=== PATIENT | female | born 1985 | race Caucasian/White ===

== ENCOUNTER 2017-01-29 22:15 | Emergency (ER) | payer OTHER ==
[2017-01-29 23:37] LABS: BASOPHIL 0.2 % (0-2); BILIRUBIN NEGATIVE (NEGATIVE); BLOOD 1+ Ery/uL (NEGATIVE); CLARITY CLEAR (CLEAR); COLOR YELLOW (YELLOW); EOSINOPHIL 2.2 % (0-5); GLUCOSE (U) NORMAL (NORMAL); HCT 43.2 % (37.0-47.0); HGB 14.8 g/dl (12.5-16.0); KETONE (U) NEGATIVE (NEGATIVE); LEUKOCYTES NEGATIVE Leu/uL (NEGATIVE); LYMPHOCYTE 32.6 % (15-48); MCH 29.8 pg (25.0-31.0); MCHC 34.3 g/dL (32.0-36.0); MCV 86.9 fL (78.0-100.0); MONOCYTE 8.6 % (0-12); MPV 9.9 fL (6.0-9.5); NEUTROPHIL 56.4 % (41-80); NITRITE NEGATIVE (NEGATIVE); PLT 275 K/uL (150-400); PROTEIN NEGATIVE (NEGATIVE); RBC 4.97 M/uL (4.20-5.40); SPECIFIC GRAVITY >=1.030 (1.001-1.030); UROBILINOGEN 0.2 mg/dL (0.2-1.0); WBC 13.1 K/uL (4.0-10.5)
[2017-01-29 23:42] LABS: AMORPHOUS URATES CRYSTALS MODERATE; BACTERIA TRACE; MUCOUS LARGE
[2017-01-29 23:56] LABS: CREATININE 0.7 mg/dL (0.5-1.0); POTASSIUM 3.8 mmol/L (3.5-5.1)
== END 2017-01-30 01:20 | disposition home or self-care (01) ==
LOC: FER 22:15
PROVIDERS: Emergency Medicine Emergency Medical Services
DX: R51 Headache (principal); R42 Dizziness and giddiness; M41.9 Scoliosis, unspecified; F17.210 Nicotine dependence, cigarettes, uncomplicated
CPT/HCPCS: 36415; 70450; 80048; 81001; 85025; J1885